=== PATIENT | male | born 1980 | race Caucasian/White ===

== ENCOUNTER → 2020-09-15 09:37 | Outpatient (CLI) | payer MEDICARE, OTHER, SELFPAY ==
[2020-09-15 10:02] LABS: Basophils % 0.4 % (0.1-2.0); Eosinophils # 0.3 K/mm3 (0.0-0.4); Eosinophils % 2.9 % (0.1-12.0); Hemoglobin 15.4 g/dL (14.1-18.0); Lymphocytes # 2.4 K/mm3 (0.7-4.5); Lymphocytes % 27.1 % (10-50); Mean Corpuscular HGB Conc 32.8 g/dL (31.8-35.4); Mean Corpuscular Hemoglobin 30.1 pg (27.0-31.2); Mean Corpuscular Volume 91.6 fl (80-94); Mean Platelet Volume 7.6 fl (7.4-10.4); Monocytes # 0.5 K/mm3 (0.1-1.0); Monocytes % 5.6 % (1.7-9.3); Neutrophils # 5.7 K/mm3 (1.8-7.8); Platelet Count 181 K/mm3 (142-424); Red Blood Count 5.13 M/mm3 (4.60-6.20); Red Cell Distribution Width 13.2 % (11.5-17.5); White Blood Count 8.9 K/mm3 (4.8-10.8)
[2020-09-15 10:10] LABS: Hemoglobin A1C 5.4 % (4.0-6.0)
[2020-09-15 10:36] LABS: Chloride 107 mmol/L (98-107); Sodium 142 mmol/L (136-145)
[2020-09-15 10:37] LABS: Potassium 4.7 mmoL/L (3.5-5.1)
[2020-09-15 10:39] LABS: Alanine Aminotransferase 14 U/L (12-78); Albumin Level 4.9 g/dl (3.5-5.0); Albumin/Globulin Ratio 2.1 (1.1-1.8); Alkaline Phosphatase 56 U/L (38-126); Anion Gap 13.7 mEq/L (5-15); Aspartate Amino Transferase 22 U/L (17-59); Bilirubin,Total 0.5 mg/dl (0.2-1.3); Blood Urea Nitrogen 6 mg/dl (9-20); Calcium 9.7 mg/dl (8.4-10.2); Carbon Dioxide 26 mmol/L (22.0-30.0); Cholesterol 149 mg/dl (140-200); Estimated Glomerular Filt Rate 125 ml/min (>60); GFR (African American) 151 ML/MIN (>60); Globulin 2.3 g/dL (1.3-3.2); Glucose 93 mg/dl (74-100); Total Protein,Serum 7.2 g/dl (6.3-8.2); Triglycerides 65 mg/dl (30-150); VLDL Cholesterol 13 mg/dL (0-40)
[2020-09-15 10:40] LABS: Chol/HDL Ratio 2.9 (1-3.5); HDL Cholesterol 51 mg/dl (40-60)
[2020-09-15 10:51] LABS: Direct LDL Cholesterol 90.81 mg/dL (100-129)
[2020-09-15 11:15] LABS: Valproic Acid, (Depakene) 27.5 ug/ml (50-100)
== END ==
PROVIDERS: Visit Provider Internal Medicine Adolescent Medicine
DX: F25.0 Schizoaffective disorder, bipolar type (principal); K21.9 Gastro-esophageal reflux disease without esophagitis; Z51.81 Encounter for therapeutic drug level monitoring; Z79.899 Other long term (current) drug therapy
CPT/HCPCS: 36415; 80053; 80061; 80164; 83036; 85025

== ENCOUNTER → 2021-03-21 08:52 | Outpatient (CLI) | payer MEDICARE, OTHER, SELFPAY ==
[2021-03-21 09:17] LABS: Basophils % 0.5 % (0.1-2.0); Eosinophils # 0.2 K/mm3 (0.0-0.4); Eosinophils % 2.6 % (0.1-12.0); Hematocrit 46.6 % (42.0-52.0); Hemoglobin 15.6 g/dL (14.1-18.0); Lymphocytes # 2.1 K/mm3 (0.7-4.5); Lymphocytes % 28.6 % (10-50); Mean Corpuscular HGB Conc 33.6 g/dL (31.8-35.4); Mean Corpuscular Hemoglobin 31.1 pg (27.0-31.2); Mean Corpuscular Volume 92.7 fl (80-94); Monocytes # 0.5 K/mm3 (0.1-1.0); Monocytes % 6.8 % (1.7-9.3); Neutrophils # 4.6 K/mm3 (1.8-7.8); Neutrophils % 61.6 % (37.0-80.0); Platelet Count 200 K/mm3 (142-424); Red Blood Count 5.03 M/mm3 (4.60-6.20); Red Cell Distribution Width 13.4 % (11.5-17.5); White Blood Count 7.4 K/mm3 (4.8-10.8)
[2021-03-21 10:00] LABS: Blood Urea Nitrogen 8 mg/dl (9-20); Calcium 9.6 mg/dl (8.4-10.2); Carbon Dioxide 30 mmol/L (22.0-30.0); Chloride 105 mmol/L (98-107); Estimated Glomerular Filt Rate 148 ml/min (>60); GFR (African American) 180 ML/MIN (>60); Glucose 102 mg/dl (74-100); Sodium 143 mmol/L (136-145)
== END ==
PROVIDERS: Visit Provider Surgery
DX: L72.3 Sebaceous cyst (principal); K52.9 Noninfective gastroenteritis and colitis, unspecified; Z01.812 Encounter for preprocedural laboratory examination; Z11.52 Encounter for screening for COVID-19
CPT/HCPCS: 36415; 80048; 85025; C9803; U0003; U0005

== ENCOUNTER 2021-03-22 09:02 | Day surgery (SDC) | payer MEDICARE, OTHER, SELFPAY ==
[2021-03-18 13:22] VITALS: BMI 19.5
[2021-03-22] VITALS (7 sets, daily range): BP systolic 114–140; BP diastolic 51–85; PULSE 52–91; RESP 16–18; TEMP 36.5–37.2; O2SAT 100
--- NOTE | 2021-03-22 11:02 | P.OP_ITS ---
Date of procedure: 03/22/21 Pre-op Diagnosis:: Sebaceous cyst on the back Post-op Diagnosis:: Same Procedure performed:: Excision of sebaceous cyst from the back (excisional length approximately 5 cm) with intermediate complexity closure Surgeon:: Samuel Hayden MD PAPER GLUING OPERATOR:: Timoteo Sunshine Anesthesia: GETA Estimated blood loss (mL): 20 Clinical Note:: Patient is a 40-year-old male referred by Dr. Qamar Daly for sebaceous cyst on the back. Patient has had a sebaceous cyst on the right thoracic area for a couple of years. However, it has increased in size. He was seen and examined in the office. He had what appeared to be approximately a 3 x 2-1/2 cm sebaceous cyst with skin punctum on the mid thoracic back. Options were discussed. Plan was made for excision with possible primary closure. When the patient was seen in the preoperative area the cyst appeared appreciably larger. Operative findings:: Consistent with sebaceous inclusion cyst Operative note:: Patient was taken the operating room. He was positioned supine position. General anesthesia was induced. He was positioned and left lateral position. The area was prepped and draped in the standard surgical fashion. Lesion was consistent with an oblong sebaceous cyst with overlying skin punctum. Skin was marked with a skin marker for planned elliptical incision. Skin incision was made. Dissection was carried down through subcutaneous tissues to the cyst capsule. There was some unavoidable spillage of caseous material from the cyst contents. Using mostly sharp scalpel dissection the overlying skin ellipse with underlying cyst wall was dissected free from the surrounding tissues. Hemostasis was achieved with electrocautery. Wound was thoroughly irrigated. Local anesthetic was infiltrated. Dermal tissues were closed with interrupted 3-0 Vicryl sutures. Skin was closed with interrupted 3-0 nylon. Clean dry sterile dressing was applied. Condition: stable Disposition: PACU Specimens:: Sebaceous cyst Complications:: None immediately apparent
--- NOTE | 2021-03-23 10:04 | HMH.ANESCL ---
[facility] Anesthesia Checklist - Structural Data Admitted From: Home Planned Operative Procedure/s: excision neoplasm back Consent for Planned Operative Procedure(s) Verified: Yes - Additional verifications Anesthesia Reactions: No Hx Blood Transfusions: No Blood Transfusion Reaction: No - Airway Assessment C-Spine Mobility Assessed: Yes TMJ Mobility Assessed: Yes Dentition: Good Dentition - Neurological Assessment Level of Consciousness: Awake, Alert, Appropriate - Anesthesia Plan Anesthesia Risk discussed: Yes Anesthesia Plan: Verified ASA Class: II Anesthesia Type: General [facility] History I have reviewed the patient's past medical history: Yes Medical History: Denies:: Cancer, Diabetes Mellitus Type 1, Diabetes Mellitus Type 2, Internal Pacemaker, MRSA, Seizures *Have you ever received a pneumonia vaccine?: No *Have you received a flu vaccine this season?: Yes Other Medical History: Denies: Blood Transfusion Reaction Anesthesia experience/problems:: none Other Surgeries: Yes: No Previous Surgery. No: Pacemaker Amputation: No Fractures: No - *Social History Last grade of school completed: Some college Smoking Status: Current every day smoker Tobacco Type: cigarettes # Packs/Day (cigarettes): 1 Alcohol Intake: former Alcohol Intake Frequency:: holidays/special occasions only Substance Use Type: denies use *Occupational Status:: disabled Housing: house Household Members: none *Travel in the last 8 weeks: None Family Hx:: Mental illness
--- NOTE | 2021-03-23 10:05 | P.PN_ITS ---
[facility] Anesthesia Record Part I Intake, IV Amount: 500 Estimated blood loss (mL): 0 Urine output (mL): 0 Blood Pressure: 131/71 SaO2: 100 Pulse Rate: 55 Respiratory Rate: 12 Temperature: 97.7 F Patient is:: Awake, Stable Stable to PACU at:: 11:05
[2021-03-23 10:06] VITALS: BP 131/71; PULSE 55; RESP 12; TEMP 36.5; O2SAT 100
--- NOTE | 2021-03-23 10:06 | HMH.ANESII ---
[facility] Anesthesia Record Part II Discharge Time: 11:35 Destination: [facility] PACU nurse assessment reviewed?: Yes Patient Condition:: Good Anesthesia Complications:: None Swallowing reflex intact?: Yes Cyanosis?: No Blood Pressure: 121/68 Pulse Rate: 68 Temperature: 97.7 F Mental Status: Alert & Oriented Pain level:: 0 Nausea and/or vomitting:: None Intake, IV Amount: 500
[2021-03-23 10:07] VITALS: BP 121/68; PULSE 68; TEMP 36.5
== END 2021-03-22 12:05 | disposition home or self-care (01) ==
LOC: OR 09:04
PROVIDERS: PCP Internal Medicine Adolescent Medicine; Visit Provider Surgery
DX: L72.0 Epidermal cyst; R23.8 Other skin changes; Z79.899 Other long term (current) drug therapy; Z91.018 Allergy to other foods; Z91.048 Other nonmedicinal substance allergy status
CPT/HCPCS: 11406; 12031; 88304; 96374; J2405